=== PATIENT | male | born 1980 ===

== ENCOUNTER 2021-01-06 13:42 | Outpatient (REF) | payer OTHER, SELFPAY ==
[2021-01-06 14:04] LABS: MANUAL DIFF FLAG NO
[2021-01-06 14:10] LABS: Basophils Absolute Auto 0.1 X10*3/uL (0.0-0.2); Basophils Percent Auto 0.8 % (0-2); Eosinophils Absolute Auto 0.1 X10*3/uL (0.0-0.4); Eosinophils Percent Auto 0.8 % (0-4); Hematocrit 44.9 % (42-52); Hemoglobin 15.6 g/dl (14.0-18.0); Imm Gran Abs Auto 0.03 X10*3/uL (0.00-0.03); Imm Gran Pct Auto 0.4 % (0.0-0.4); Lymphocytes Absolute Auto 1.5 X10*3/uL (1.2-4.9); Lymphocytes Percent Auto 19.6 % (20-40); Mean Corpuscular HGB Conc 34.7 g/dl (31.0-36.0); Mean Corpuscular Hemoglobin 30.2 pg (27.0-33.0); Mean Corpuscular Volume 86.8 fL (80-98); Mean Platelet Volume 9.4 fL (9.4-12.4); Monocytes Absolute Auto 0.4 X10*3/uL (0.1-1.2); Neutrophils Absolute Auto 5.8 X10*3/uL (2.0-8.3); Neutrophils Percent Auto 73.4 % (45-73); Platelet Count 313 X10*3/uL (160-400); Red Blood Count 5.17 X10*6/uL (4.60-5.80); White Blood Count 7.9 X10*3/uL (4.8-10.8)
[2021-01-06 14:41] LABS: Alanine Aminotransferase 25 U/L (0-40); Albumin Level 4.8 g/dL (3.5-5.0); Alkaline Phosphatase 49 U/L (39-117); Anion Gap 10 (12-20); Aspartate Amino Transferase 19 U/L (5-37); Bilirubin Total 0.6 mg/dL (0.0-1.0); Blood Urea Nitrogen 15 mg/dL (9-16); C Reactive Protein 0.07 mg/dL (< or = 0.50); Calcium 10.1 mg/dL (8.4-10.2); Carbon Dioxide 28 mmol/L (22-29); Chloride 106 mmol/L (96-108); Estimated Glomerular Filt Rate > 60; Glucose Random 118 mg/dL (60-115); Potassium 4.2 mmol/L (3.3-5.1); Sodium 140 mmol/L (135-145); Total Protein 7.5 g/dL (6.5-8.0)
[2021-01-06 14:49] LABS: Erythrocyte Sedimentation Rate 2 MM/HR (0-15)
[2021-01-06 15:04] LABS: Free T4 (Free Thyroxine) 1.03 ng/dL (0.71-1.85); Thyroid Stimulating Hormone 0.25 uIU/mL (0.32-4.0)
[2021-01-06 15:19] LABS: Folate > 20.0 ng/mL (> or = 4.0); Vitamin B12 441 pg/mL (200-900)
[2021-01-06 17:59] LABS: Glucose Urine UA NEG (NEG); Leukocyte Esterase Urine NEG (NEG); Nitrite Urine NEG (NEG); PH 7.5 (5.0-8.0); Specific Gravity - Urine 1.015 (1.005-1.025); Urine Blood NEG (NEG); Urine Ketones NEG (NEG); Urine Protein NEG (NEG-TRACE)
[2021-01-06 18:07] LABS: Appearance Urine HAZY; Color Urine YELLOW
[2021-01-06 18:27] LABS: Amorphous Sediment Urine 3+ /LPF; RBC Urine 0 /HPF (0); WBC Urine 0 /HPF (0-4)
== END 2021-01-06 13:43 | disposition home or self-care (01) ==
LOC: HO.LAB 13:42
PROVIDERS: PCP Internal Medicine; Visit Provider Internal Medicine
DX: M79.10 Myalgia, unspecified site (principal)
CPT/HCPCS: 36415; 80053; 81001; 82550; 82607; 82746; 84439; 84443; 85025; 85652; 86140

== ENCOUNTER 2021-01-14 13:47 | Outpatient (REF) | payer OTHER, SELFPAY ==
[2021-01-14 14:46] LABS: Estimated Average Glucose 100 mg/dL; Hemoglobin A1c % 5.1 %
[2021-01-14 15:20] LABS: Free T4 (Free Thyroxine) 1.11 ng/dL (0.71-1.85); Thyroid Stimulating Hormone 0.49 uIU/mL (0.32-4.0)
== END 2021-01-14 13:48 | disposition home or self-care (01) ==
LOC: HO.LAB 13:47
PROVIDERS: PCP Internal Medicine; Visit Provider Internal Medicine
DX: R79.89 Other specified abnormal findings of blood chemistry (principal)
CPT/HCPCS: 36415; 83036; 84439; 84443

== ENCOUNTER 2021-02-11 14:11 | Outpatient (REF) | payer OTHER, SELFPAY ==
[2021-02-11 15:47] LABS: MANUAL DIFF FLAG NO
[2021-02-11 16:00] LABS: Basophils Absolute Auto 0.1 X10*3/uL (0.0-0.2); Basophils Percent Auto 0.7 % (0-2); Eosinophils Absolute Auto 0.1 X10*3/uL (0.0-0.4); Eosinophils Percent Auto 0.9 % (0-4); Hematocrit 48.5 % (42-52); Hemoglobin 16.5 g/dl (14.0-18.0); Imm Gran Abs Auto 0.07 X10*3/uL (0.00-0.03); Imm Gran Pct Auto 0.7 % (0.0-0.4); Lymphocytes Absolute Auto 2.1 X10*3/uL (1.2-4.9); Lymphocytes Percent Auto 21.9 % (20-40); Mean Corpuscular Hemoglobin 29.9 pg (27.0-33.0); Mean Platelet Volume 9.6 fL (9.4-12.4); Monocytes Absolute Auto 0.6 X10*3/uL (0.1-1.2); Monocytes Percent Auto 6.2 % (2-11); Neutrophils Absolute Auto 6.7 X10*3/uL (2.0-8.3); Neutrophils Percent Auto 69.6 % (45-73); Platelet Count 350 X10*3/uL (160-400); Red Blood Count 5.51 X10*6/uL (4.60-5.80); Red Cell Distribution Width 12.1 % (11.0-16.0); White Blood Count 9.6 X10*3/uL (4.8-10.8)
[2021-02-11 16:24] LABS: Alanine Aminotransferase 23 U/L (0-40); Albumin Level 4.9 g/dL (3.5-5.0); Alkaline Phosphatase 58 U/L (39-117); Anion Gap 15 (12-20); Aspartate Amino Transferase 18 U/L (5-37); Bilirubin Total 0.5 mg/dL (0.0-1.0); Blood Urea Nitrogen 16 mg/dL (9-16); C Reactive Protein 0.06 mg/dL (< or = 0.50); Calcium 10.4 mg/dL (8.4-10.2); Carbon Dioxide 26 mmol/L (22-29); Chloride 103 mmol/L (96-108); Estimated Glomerular Filt Rate > 60; Glucose Random 94 mg/dL (60-115); Potassium 4.7 mmol/L (3.3-5.1); Sodium 139 mmol/L (135-145); Total Protein 8.2 g/dL (6.5-8.0)
[2021-02-11 17:48] LABS: Erythrocyte Sedimentation Rate 2 MM/HR (0-15)
[2021-02-12 10:55] LABS: Antibody to SS-A Antigen <1.0 NEG AI (<1.0 NEG); Antibody to SS-B Antigen <1.0 NEG AI (<1.0 NEG)
[2021-02-14 17:57] LABS: Anti Nuclear Antibody Screen NEGATIVE (NEGATIVE)
[2021-02-17 01:35] LABS: Aldolase 5.9 U/L (<=8.1)
== END 2021-02-11 14:12 | disposition home or self-care (01) ==
LOC: HO.LAB 14:11
PROVIDERS: Visit Provider Student in an Organized Health Care Education/Training Program
DX: M79.10 Myalgia, unspecified site (principal); Z79.899 Other long term (current) drug therapy; Z87.891 Personal history of nicotine dependence
CPT/HCPCS: 36415; 80053; 82085; 82550; 85025; 85652; 86038; 86039; 86140; 86235

== ENCOUNTER → 2021-03-08 15:25 | Outpatient (BNVA) | payer OTHER, SELFPAY | PROVIDERS: PCP Internal Medicine; Visit Provider Student in an Organized Health Care Education/Training Program ==

== ENCOUNTER 2021-04-04 15:10 | Outpatient (REF) | payer OTHER, SELFPAY ==
[2021-04-04 16:12] LABS: Rheumatoid Factor < 15.0 IU/mL (<15.0)
[2021-04-04 16:35] LABS: Syphilis Screen Nonreactive (Nonreactive)
[2021-04-04 17:51] LABS: Erythrocyte Sedimentation Rate 4 MM/HR (0-15)
[2021-04-05 08:52] LABS: Lyme Abs Screen <0.90 index
[2021-04-05 13:41] LABS: IgA 200 mg/dL (47-310); IgG 1124 mg/dL (600-1640); IgM 77 mg/dL (50-300)
[2021-04-08 23:36] LABS: Aldolase 6.3 U/L (<=8.1)
== END 2021-04-04 15:11 | disposition home or self-care (01) ==
LOC: HO.LAB 15:10
PROVIDERS: PCP Internal Medicine; Visit Provider Psychiatry & Neurology Neurology
DX: R53.83 Other fatigue (principal); M79.602 Pain in left arm
CPT/HCPCS: 36415; 82085; 82550; 82784; 85652; 86334; 86431; 86617; 86618; 86780

== ENCOUNTER 2021-10-13 13:00 | Outpatient (RCR) | payer OTHER, SELFPAY ==
--- NOTE | 2021-09-15 13:57 | MHC.OT.OEV ---
[address] [phone] F: [phone] Occupational Therapy Evaluation Diagnosis: Post vaccine reaction. Weakness .. Date of Onset: 08/24/20 Date of Surgery: Attending Provider: Carlene Soriano Prescribed Treatment: Delgado and dian BULLOCK Follow Up Appointment: History of Current Condition: Pt reports persistant arm pain for 2 mo post Mederna vaccine.. worsening with arm weakness on left and progressing to right arm and his legs. He reports worsening sx with any light exercising with several days to recover. Reports taking Cyclobenzaprine. Pt has had EMG/NCV not available now.. Significant Medical History: Anxiety disorder Back pain Precautions/Contraindications: Pain Patient Goals: Getting better but I think it will only make me weaker. Hand Dominance: Right Observations: QuickDASH Score: 84 Prior Level of Function and Occupation Self Care, Employment, Leisure: Indep in all areas. 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 Walks with son, ride bikes Living Situation, Family and/or Social Support: Lives alone.. Has a 15 yo son and a girlfriend Current Level of Function and Occupation Self Care, Employment, Leisure: Okay with light clothes ,indep ADL Light food prep, light home making Sleep: Interrupted due to worsening anxiety Driving: Limited due to ho anxiety. Avoids use of left arm Vision: Balance: Pain Assessment Pain Score: 6 Pain Scale Used: Numeric (0 - 10) Pain Location and Description: 6 bilateral upper arms at rest Aggravating Factors: Alleviating Factors: Skin and Soft Tissue Assessment Skin and Soft Tissue: Comments: Right shoulder protracted Left scap mild winging Left upper trapezius ms hypertrophy Nerve assessment Ulnar Nerve: Not Tested Median Nerve: Not Tested Radial Nerve: Not Tested Comments: Sensory Assessment Temperature: Not Tested Light Touch: Not Tested Proprioception: Not Tested Vibration: Not Tested Comments: Edema Assessment Upper Extremity: WNL Lower Extremity: Comments: Dexterity Assessment Dexterity: Not Tested Comments: Special Tests Comments: AROM(PROM) Strength Cervical Cervical Flexion: Cervical Extension: Cervical Lateral Flexion: Cervical Rotation: Comments: Shoulder Flexion: Extension: Abduction: Internal Rotation: External Rotation: Comments: WFL Flexion: Extension: Abduction: Internal Rotation: External Rotation: Comments: Elbow Flexion: Extension: Pronation: Supination: Comments: Flexion: Extension: Pronation: Supination: Comments: Wrist Flexion: Extension: Ulnar Deviation: Radial Deviation: Comments: Flexion: Extension: Ulnar Deviation: Radial Deviation: Comments: Thumb Thumb CMC Flexion: Thumb MCP Flexion: Thumb IP Flexion: Radial Abduction: Palmar Abduction: [place] (K[place]andji 0-10): Comments: Digits Index MCP: PIP: DIP: Long MCP: PIP: DIP: Ring MCP: PIP: DIP: Small MCP: PIP: DIP: Comments: Gross Grasp: R 40 lb L 20 lb Lateral Pinch: Two-Point Pinch: Three-Jaw Derek: Comments: Patient Education Primary Language: Slovenian Kiosk Sales Representative Required: No Current Knowledge: Minimal, needs reinforcement Teaching Method: Education Needs Identified on Evaluation: ADL's Exercise Pain How did patient/family demonstrate learning? Patient demonstrates Patient verbalizes Needs reinforcement Barriers to Learning: Other Readiness for Learning: Denying Who was educated? Patient Comments: Pt states he doesn't believe therapy or exercise will help based on his experience with worsening sx after taking a short walk with his son and with attempting light exercise in his home. Plan of Care Assessment: Pt is a 40 yo male who presents with complaint of chronic bilateral UE and LE pain and weakness since getting his second dose of covid vaccine the previous August. Today he presents with left upper trapezius ms hypertrophy and middle and lower trap weakness with mild left scapula winging noted. MMT was WFL with mild LUE ms atrophy noted. 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 He reports wearing his back brace and low compression sleeves help. He reports worsening of his anxiety disorder and expresses having no expectation for improvement in his pain and weakness based on his attempts to rehab at home He is agreeable to trial OT 1x wk as he is able due to loss of insurance as he was dismissed from his job two days ago STG Duration: 3 wks Short Term Goals: Demo compliance with graded HEP Tolerate body wt core ther ex Tolerate isometric UE ther ex Tolerate up to 10 min on the UBE with low resistance Complete Block and Box test box in under 2 min LTG Duration: 6 wks Care Home Goals: Indep with HEP UBE x 20 min Right structural engineering drafting officer to 50 lb Left structural engineering drafting officer to 45 lb Lift and carry 10 lb bag Quick DASH to < 30 pts with modifications as needed Frequency and Duration: The patient will be seen 2x wk x 6 wks Treatment Plan: Therapeutic Exercise Therapeutic Activity Home Exercise Program Patient Education ADL Training Soft Tissue Mobilization Kinesiotaping Diaphragmatic breathing ex for relaxation prior to ex and ther activities Electronically Signed By: Marilu Styles OT CHT CLT Reviewed/agree with student documentation: N/A Therapist: Please sign and return to therapist, Thank you for your referral.
--- NOTE | 2021-10-13 13:59 | MHC.OT.DC ---
[address] [phone] F: [phone] Occupational Therapy Discharge Note Provider: Carlene Soriano Diagnosis: Post vaccine reaction. Weakness .. Date of Surgery: Date of Evaluation: 09/15/21 Date of Discharge: 10/13/21 Treatments to Date: 6 Cancellations to Date: No Shows to Date: Discharge Status: Independent with HEP Patient Elected to Stop Discharge Summary: Pt reports dec pain with TENS, increased tolerance with light activity here in the clinic. He continues to report con't pain with light daily activities with the LUE > RUE. Today he reports increase left biceps pain and upper trap pain after short shuffling of playing cards. Pain and pt anxiety about pain limiting all activity In OT he has aquired a variety of tools for pain management , strengthening and activity tolerance. He has purchased a TENS unit for home use. Reports loss of insurance and confidence with following his home self pace program Goals not met for dexterity ,strength or function Participation limited by pt anxiety over increasing pain with inc activity Electronically Signed By: Marilu Styles OT CHT CLT Reviewed/agree with student documentation: N/A Therapist: Please Sign and return to therapist, thank you for your referral.
== END 2021-10-13 14:00 | disposition home or self-care (01) ==
LOC: HO.OT 13:00
PROVIDERS: PCP Internal Medicine; Visit Provider Internal Medicine
DX: R29.898 Other symptoms and signs involving the musculoskeletal system (principal)
CPT/HCPCS: 97014; 97110; 97140; 97167; 97530

== ENCOUNTER 2021-12-30 14:48 | Outpatient (REF) | payer OTHER, SELFPAY ==
[2021-12-30 15:00] LABS: MANUAL DIFF FLAG NO
[2021-12-30 15:32] LABS: Basophils Absolute Auto 0.1 X10*3/uL (0.0-0.2); Eosinophils Absolute Auto 0.2 X10*3/uL (0.0-0.4); Eosinophils Percent Auto 2.4 % (0-4); Hematocrit 47.8 % (42.0-52.0); Hemoglobin 16.1 g/dl (14.0-18.0); Imm Gran Abs Auto 0.03 X10*3/uL (0.00-0.03); Imm Gran Pct Auto 0.4 % (0.0-0.4); Lymphocytes Absolute Auto 1.8 X10*3/uL (1.2-4.9); Mean Corpuscular HGB Conc 33.7 g/dl (31.0-36.0); Mean Corpuscular Hemoglobin 28.9 pg (27.0-33.0); Mean Corpuscular Volume 85.7 fL (80.0-98.0); Mean Platelet Volume 9.3 fL (9.4-12.4); Monocytes Absolute Auto 0.3 X10*3/uL (0.1-1.2); Monocytes Percent Auto 4.7 % (2-11); Neutrophils Absolute Auto 4.5 x10*3/uL (2.0-8.3); Neutrophils Percent Auto 65.5 % (45-73); Platelet Count 334 X10*3/uL (160-400); Red Blood Count 5.58 X10*6/uL (4.60-5.80); Red Cell Distribution Width 12.1 % (11.0-16.0)
[2021-12-30 15:57] LABS: Alanine Aminotransferase 35 U/L (0-40); Albumin Level 4.7 g/dL (3.5-5.0); Alkaline Phosphatase 57 U/L (39-117); Anion Gap 12 (12-20); Aspartate Amino Transferase 19 U/L (5-37); Bilirubin Total 0.7 mg/dL (0.0-1.0); Blood Urea Nitrogen 15 mg/dL (9-16); C Reactive Protein 0.18 mg/dL (< or = 0.50); Carbon Dioxide 25 mmol/L (22-29); Chloride 107 mmol/L (96-108); Cholesterol 232 mg/dL; Estimated Glomerular Filt Rate > 60; Glucose Random 118 mg/dL (60-115); HDL Cholesterol 42 mg/dL; LDL Cholesterol Calculated 160 mg/dl; Potassium 4.9 mmol/L (3.3-5.1); Sodium 139 mmol/L (135-145); Total Protein 7.7 g/dL (6.5-8.0); Triglycerides 151 mg/dL
[2021-12-30 16:15] LABS: Erythrocyte Sedimentation Rate 3 MM/HR (0-15)
[2021-12-30 16:18] LABS: Free T4 (Free Thyroxine) 1.02 ng/dL (0.71-1.85); Thyroid Stimulating Hormone 0.82 uIU/mL (0.32-4.0)
[2021-12-30 16:30] LABS: Vitamin B12 534 pg/mL (200-900)
== END 2021-12-30 14:49 | disposition home or self-care (01) ==
LOC: HO.LAB 14:48
PROVIDERS: PCP Internal Medicine; Visit Provider Internal Medicine
DX: T88.1XXA Other complications following immunization, not elsewhere classified, initial encounter (principal); E78.00 Pure hypercholesterolemia, unspecified
CPT/HCPCS: 36415; 80053; 80061; 82607; 82746; 84439; 84443; 85025; 85652; 86140

== ENCOUNTER 2022-07-31 15:29 | Outpatient (REF) | payer OTHER, SELFPAY ==
[2022-07-31 15:58] LABS: MANUAL DIFF FLAG NO
[2022-07-31 17:18] LABS: Basophils Percent Auto 0.6 % (0-2); Eosinophils Absolute Auto 0.2 X10*3/uL (0.0-0.4); Eosinophils Percent Auto 2.3 % (0-4); Hematocrit 48.1 % (42.0-52.0); Hemoglobin 16.3 g/dl (14.0-18.0); Imm Gran Abs Auto 0.04 X10*3/uL (0.00-0.03); Imm Gran Pct Auto 0.6 % (0.0-0.4); Lymphocytes Absolute Auto 2.3 X10*3/uL (1.2-4.9); Lymphocytes Percent Auto 35.1 % (20-40); Mean Corpuscular HGB Conc 33.9 g/dl (31.0-36.0); Mean Corpuscular Hemoglobin 29.8 pg (27.0-33.0); Mean Corpuscular Volume 87.9 fL (80.0-98.0); Mean Platelet Volume 9.5 fL (9.4-12.4); Monocytes Absolute Auto 0.4 X10*3/uL (0.1-1.2); Monocytes Percent Auto 6.2 % (2-11); Neutrophils Absolute Auto 3.6 x10*3/uL (2.0-8.3); Neutrophils Percent Auto 55.2 % (45-73); Platelet Count 298 X10*3/uL (160-400); Red Blood Count 5.47 X10*6/uL (4.60-5.80); Red Cell Distribution Width 12.2 % (11.0-16.0); White Blood Count 6.5 X10*3/uL (4.8-10.8)
[2022-07-31 17:21] LABS: Appearance Urine Clear; Color Urine Yellow; Glucose Urine UA Negative (Negative); Leukocyte Esterase Urine Negative (Negative); Nitrite Urine Negative (Negative); Specific Gravity - Urine 1.025 (1.005-1.025); Urine Blood Negative (Negative); Urine Ketones Negative (Negative); Urine Protein Negative (Neg-Trace)
[2022-07-31 17:24] LABS: Bacteria Urine None Seen (None Seen); Hyaline Casts Urine 0-2 /LPF (0-2); RBC Urine 0-2 /HPF (0-2); Squamous Epithelial Cell Urine 0-2 /HPF (0-2); WBC Urine 0-5 /HPF (0-5)
[2022-07-31 17:26] LABS: Estimated Average Glucose 108 mg/dL; Hemoglobin A1C 148.8319 umol/L; Hemoglobin A1c % 5.4 %
[2022-07-31 17:47] LABS: Alanine Aminotransferase 84 U/L (0-40); Albumin Level 4.6 g/dL (3.5-5.0); Alkaline Phosphatase 55 U/L (39-117); Anion Gap 13 (12-20); Aspartate Amino Transferase 39 U/L (5-37); Bilirubin Total 0.6 mg/dL (0.0-1.0); Blood Urea Nitrogen 17 mg/dL (9-16); Calcium 9.9 mg/dL (8.4-10.2); Carbon Dioxide 26 mmol/L (22-29); Chloride 107 mmol/L (96-108); Cholesterol 239 mg/dL; Estimated Glomerular Filt Rate > 60; Glucose Random 84 mg/dL (60-115); HDL Cholesterol 44 mg/dL; LDL Cholesterol Calculated 160 mg/dl; Potassium 4.5 mmol/L (3.3-5.1); Sodium 141 mmol/L (135-145); Total Protein 7.4 g/dL (6.5-8.0); Triglycerides 175 mg/dL
[2022-07-31 18:06] LABS: Thyroid Stimulating Hormone 0.62 uIU/mL (0.32-4.0)
== END 2022-07-31 15:30 | disposition home or self-care (01) ==
LOC: HO.LAB 15:29
PROVIDERS: PCP Internal Medicine; Visit Provider Internal Medicine
DX: R35.0 Frequency of micturition (principal); R73.02 Impaired glucose tolerance (oral); E78.00 Pure hypercholesterolemia, unspecified
CPT/HCPCS: 36415; 80053; 80061; 81001; 83036; 84443; 85025

== ENCOUNTER 2022-08-21 14:12 | Outpatient (REF) | payer OTHER, SELFPAY ==
[2022-08-21 16:28] LABS: Alanine Aminotransferase 42 U/L (0-40); Albumin Level 4.4 g/dL (3.5-5.0); Alkaline Phosphatase 63 U/L (39-117); Anion Gap 14 (12-20); Aspartate Amino Transferase 22 U/L (5-37); Bilirubin Total 0.6 mg/dL (0.0-1.0); Blood Urea Nitrogen 15 mg/dL (9-16); Calcium 9.5 mg/dL (8.4-10.2); Carbon Dioxide 24 mmol/L (22-29); Chloride 107 mmol/L (96-108); Estimated Glomerular Filt Rate > 60; Glucose Random 85 mg/dL (60-115); Potassium 4.5 mmol/L (3.3-5.1); Sodium 140 mmol/L (135-145); Total Protein 7.2 g/dL (6.5-8.0)
[2022-08-23 05:22] LABS: HBS Num1 2.36 mIU/mL (0-7.99); HBc Num1 0.07 S/CO (0.00-0.79); HBsAGNum1 0.36 S/CO (0.00-0.99); Hepatitis B Core Antibody Nonreactive (Nonreactive); Hepatitis B Surface Antigen Negative (Negative); ~HepC Num1 0.09 S/CO (0.00-0.79); ~Hepatitis B Surface Antibody NONREACTIVE (Nonreactive); ~Hepatitis C Antibody Nonreactive (Nonreactive)
== END 2022-08-21 14:13 | disposition home or self-care (01) ==
LOC: HO.LAB 14:12
PROVIDERS: PCP Internal Medicine; Visit Provider Internal Medicine
DX: R79.89 Other specified abnormal findings of blood chemistry (principal)
CPT/HCPCS: 36415; 80053; 86704; 86706; 86803; 87340

== ENCOUNTER 2022-09-15 14:02 | Outpatient (REF) | payer OTHER, SELFPAY ==
--- NOTE | ~2022-09-15 | US_ITS ---
EXAMINATION: US ABDOMEN LIMITED CLINICAL INFORMATION: Other specified abnormal findings of blood chemistry. Abnormal liver function test. COMPARISON: None TECHNIQUE: Real-time imaging of the right upper quadrant abdominal viscera. FINDINGS: PANCREAS: Normal. LIVER: The liver is normal in size. The liver contour is normal. Parenchymal echogenicity is normal. No focal hepatic lesion. There is no intrahepatic biliary duct dilatation seen. GALLBLADDER: The gallbladder is physiologically distended without evidence of stones, sludge, polyps, wall thickening or pericholecystic fluid. COMMON BILE DUCT: Normal in caliber measuring 0.3 cm in diameter. RIGHT KIDNEY: No hydronephrosis. No renal calculi or focal parenchymal lesions. The kidney measures 11.6 cm in maximum dimension. FREE FLUID: None. US/US abdomen limited IMPRESSION: Negative exam.
== END 2022-09-15 14:03 | disposition home or self-care (01) ==
LOC: HO.US 14:02
PROVIDERS: Visit Provider Internal Medicine
DX: R79.89 Other specified abnormal findings of blood chemistry (principal)
CPT/HCPCS: 76705

== ENCOUNTER 2023-05-04 14:39 | Outpatient (AMB) | payer OTHER, SELFPAY ==
[2023-05-04 14:44] VITALS: BP 134/90; PULSE 105; O2SAT 95; BMI 29.4
--- NOTE | 2023-05-04 14:44 | A.OFFPC_ITS ---
Vital Signs 05/04/23 14:44 05/04/23 15:08 Height 5 ft 9 in Weight 199 lb BMI 29.4 BP 134/90 H 132/80 Blood Pressure Location Lt brachial Rt brachial Position Sitting Sitting Pulse 105 H Pulse Source Pulse Oximeter Pulse Oximetry (%) 95 Oxygen Delivery Method Room Air Intake Visit Reasons: vacc. reaction/ anxiety disorder Allergies No Known Allergies [No Known Allergies*] Allergy (Verified 05/04/23 14:45) Medication List - Last Reconciled 05/04/23 by Carlene Soriano MD cyclobenzaprine 5 mg PO TID PRN 30 days [Functional Capacity Evaluation As directed] naproxen sodium (Aleve) 220 mg PO BID PRN sertraline 25 mg PO DAILY 30 days Tobacco use date assessed: 11/06/22 Dental Screening Dental Screen Date: 05/04/23 Did you have a dental visit in the last 12 months?: Yes Did you have a dental problem in the last 6 months where you did not have access to dental care?: No Was dental information given to patient?: Patient has dentist HPI vacc. reaction/ anxiety disorder HPI Details 42-year-old overweight male with a histo ry of post vaccination reaction with arm weakness generalized anxiety disorder, hypercholesterolemia and impaired glucose tolerance last seen in July and had blood work done review of the results came back with an elevated liver function test workup was requested hepatitis B negative and ultrasound revealed negative results patient is here for follow-up. Patient last seen in October 2022. noted weight gain [facility] Medical History Shoulder weakness Elevated blood sugar Surgical History No pertinent past surgical history Family History Father Diabetes Hypertension Mother Diabetes Hypertension Social History Housing: Apartment Alcohol intake: current Alcohol intake frequency: holidays/special occasions only Patient Tobacco Use Status: Never used Tobacco e-Cigarette/Vaping Use: Never Used Second Hand Smoke Exposure: No service: No Current occupational status: employed Current occupational exposures/hazards: No Cognitive needs: No Hearing needs: No Vision needs: No Questionnaire PHQ-9 Over the last 2 weeks, how often have you been bothered by any of the following problems? 1. Little interest or pleasure in doing things: several days 2. Feeling down, depressed, or hopeless: several days 3. Trouble falling or staying asleep, or sleeping too much: not at all 4. Feeling tired or having little energy: not at all 5. Poor appetite or overeating: not at all 6. Feeling bad about yourself - or that you are a failure or have let yourself or your family down: not at all 7. Trouble concentrating on things, such as reading the newspaper or watching television: not at all 8. Moving or speaking so slowly that other people could have noticed. Or the opposite - being so fidgety or restless that you have been moving around a lot more than usual: not at all 9. Thoughts that you would be better off or of hurting yourself in some way: not at all Total score: 2 Depression Screening Interpretation: Positive Depression Screening Done: Yes Source: Developed by Drs. Steve Hernandez, Skinny Barkley and colleagues, with an educational jamey from [employer]. Thrive Questionnaire Date Thrive assessed: 08/01/22 AUDIT C Alcohol Use Questionnaire (AUDIT-C) 1. How often do you have a drink containing alcohol?: Monthly or less 2. How many drinks containing alcohol do you have on a typical day when you are drinking?: 1 or 2 3. How often do you have six or more drinks on one occasion?: Never Total Score: 1 [place]-7 AMB Questionnaire VIRGINIA-7 Date VIRGIN[place] - 7 assessed: 08/01/22 Source: Developed by Drs. Steve Hernandez, Gabriella Drake, Skinny Hollingsworth and colleagues, with an educational jamey from [employer]. Physical exam (Primary Care) Vital Signs: Last Vital Signs Pulse 105 H 05/04/23 14:44 BP 132/80 05/04/23 15:08 Pulse Ox 95 05/04/23 14:44 Oxygen Delivery Method Room Air 05/04/23 14:44 BMI result Body Mass Index 29.4 Tobacco/Smoking Status: Tobacco use Status Tobacco use date assessed 11/06/22 05/04/23 14:45 Patient Tobacco Use Status Never used Tobacco 05/04/23 14:45 Tobacco use type 02/02/22 16:23 e-Cigarette/Vaping Use Never Used 05/04/23 14:45 PHQ-9: PHQ-9 Score PHQ-9: Total score 2 05/04/23 15:20 Depression Screening Interpretation: Positive Thrive Assessment: Date of Thrive Assessment Date Thrive assessed 08/01/22 05/04/23 14:45 Office Procedures Flu Questionnaire Does the patient have a severe egg allergy?: No Does the patient have severe life threatening allergies?: No Does the patient have a fever or illness today?: No Has the patient ever had Guillain-Pho[place] Syndrome?: No Has the patient ever had any past reaction to a flu shot?: No Immunizations flu vacc [id number] 6mos up(PF) 60 mcg(15 mcgx4)/0.5 mL IM syringe Performing Provider: Carlene Soriano MD [facility] Administered by: NAHUM Black on 05/04/23 15:24 Dose Route Admin Location Dispensed Lot Number Expiration Date NDC Sharepoint Specialist 0.5 mL IM Right Deltoid 0.5 mL [id number] 01/20/24 [id number] [employer] VIS Given Date VIS Provided VIS Publication Date 05/04/23 Single Vaccine 21 Eligibility Eligibility Date Funding Source Not [facility] Eligible 05/04/23 Private Assessment and Plan Assessment & Plan (1) Hypercholesterolemia: Code(s): E78.00 - Pure hypercholesterolemia, unspecified (2) Overweight (BMI 25.0-29.9): Code(s): E66.3 - Overweight (3) Post-vaccination reaction: Comment: August 2020 Code(s): T88.1XXA - Other complications following immunization, not elsewhere classified, initial encounter (4) Generalized anxiety disorder: Comment: Declined referral for counseling October 2021, 01/2022 Code(s): F41.1 - Generalized anxiety disorder Orders: Orders Complete Blood Count Auto Diff Today E78.00 - Pure hypercholesterolemia, unspecified Thyroid Stimulating Hormone Today E78.00 - Pure hypercholesterolemia, unspecified Hemoglobin A1c Today R73.02 - Impaired glucose tolerance (oral) Influenza [id number] Immunization Today Z23 - Encounter for immunization Comprehensive Met. Panel Today E78.00 - Pure hypercholesterolemia, unspecified Free T4 (Free Thyroxine) Today E78.00 - Pure hypercholesterolemia, unspecified Lipid Panel Today E78.00 - Pure hypercholesterolemia, unspecified Medications: Refilled naproxen sodium (Aleve) alternating day with tylenol 220 mg PO BID PRN 90 caps 0RF pain M25.511 - Pain in right shoulder, M25.512 - Pain in left shoulder Coding Level of Care Code Est Pt Level 4 (34652) Diagnoses Hypercholesterolemia E78.00 Overweight (BMI 25.0-29.9) E66.3 Post-vaccination reaction T88.1XXA Generalized anxiety disorder F41.1
[2023-05-04 15:08] VITALS: BP 132/80
== END 2023-05-04 15:25 | disposition home or self-care (01) ==
PROVIDERS: PCP Internal Medicine; Visit Provider Internal Medicine
DX: E78.00 Pure hypercholesterolemia, unspecified (principal); E66.3 Overweight; T88.1XXA Other complications following immunization, not elsewhere classified, initial encounter; F41.1 Generalized anxiety disorder; Z23 Encounter for immunization
CPT/HCPCS: 90471; 90686; 99214

== ENCOUNTER 2023-08-20 10:29 | Outpatient (REF) | payer OTHER, SELFPAY ==
[2023-08-20 10:44] LABS: MANUAL DIFF FLAG NO
[2023-08-20 11:37] LABS: Basophils Absolute Auto 0.1 X10*3/uL (0.0-0.2); Basophils Percent Auto 0.8 % (0-2); Eosinophils Absolute Auto 0.1 X10*3/uL (0.0-0.4); Eosinophils Percent Auto 1.9 % (0-4); Hematocrit 49.3 % (42.0-52.0); Hemoglobin 16.5 g/dl (14.0-18.0); Imm Gran Abs Auto 0.07 X10*3/uL (0.00-0.03); Lymphocytes Absolute Auto 2.2 X10*3/uL (1.2-4.9); Lymphocytes Percent Auto 30.1 % (20-40); Mean Corpuscular HGB Conc 33.5 g/dl (31.0-36.0); Mean Corpuscular Volume 86.6 fL (80.0-98.0); Mean Platelet Volume 9.8 fL (9.4-12.4); Monocytes Absolute Auto 0.4 X10*3/uL (0.1-1.2); Monocytes Percent Auto 5.7 % (2-11); Neutrophils Absolute Auto 4.4 x10*3/uL (2.0-8.3); Neutrophils Percent Auto 60.5 % (45-73); Platelet Count 337 X10*3/uL (160-400); Red Blood Count 5.69 X10*6/uL (4.60-5.80); Red Cell Distribution Width 12.2 % (11.0-16.0); White Blood Count 7.3 X10*3/uL (4.8-10.8)
[2023-08-20 11:51] LABS: Estimated Average Glucose 103 mg/dL; Hemoglobin A1c % 5.2 % (<6.0)
[2023-08-20 12:33] LABS: Alanine Aminotransferase 26 U/L (0-40); Albumin Level 4.4 g/dL (3.5-5.0); Alkaline Phosphatase 66 U/L (39-117); Anion Gap 10 (12-20); Aspartate Amino Transferase 16 U/L (5-37); Bilirubin Total 0.5 mg/dL (0.0-1.0); Blood Urea Nitrogen 16 mg/dL (9-16); Calcium 9.6 mg/dL (8.4-10.2); Carbon Dioxide 24 mmol/L (22-29); Chloride 110 mmol/L (96-108); Cholesterol 178 mg/dL (<200); Estimated Glomerular Filt Rate > 60; Glucose Random 98 mg/dL (60-115); HDL Cholesterol 40 mg/dL (>40); LDL Cholesterol Calculated 113 mg/dL (<100); Potassium 4.4 mmol/L (3.3-5.1); Sodium 140 mmol/L (135-145); Total Protein 7.6 g/dL (6.5-8.0); Triglycerides 129 mg/dL (<150)
[2023-08-20 13:23] LABS: Free T4 (Free Thyroxine) 0.87 ng/dL (0.71-1.85); Thyroid Stimulating Hormone 0.96 uIU/mL (0.32-4.0)
== END 2023-08-20 10:30 | disposition home or self-care (01) ==
LOC: HO.LAB 10:29
PROVIDERS: PCP Internal Medicine; Visit Provider Internal Medicine
DX: R73.02 Impaired glucose tolerance (oral) (principal); E78.00 Pure hypercholesterolemia, unspecified
CPT/HCPCS: 36415; 80053; 80061; 83036; 84439; 84443; 85025

== ENCOUNTER 2023-08-21 12:26 | Outpatient (AMB) | payer OTHER, SELFPAY ==
[2023-08-21 12:28] VITALS: BP 114/82; PULSE 79; O2SAT 98; BMI 29.9
--- NOTE | 2023-08-21 12:28 | MHC.PC.OV ---
Vital Signs 08/21/23 12:28 Height 5 ft 9 in Weight 202 lb 6 oz BMI 29.9 BP 114/82 Blood Pressure Location Rt brachial Position Sitting Pulse 79 Pulse Source Pulse Oximeter Pulse Oximetry (%) 98 Oxygen Delivery Method Room Air Intake Visit Reasons: PE Intake Note: Patient is here today for a physical. Library Services Coordinator Required: No Allergies No Known Allergies [No Known Allergies*] Allergy (Verified 08/21/23 12:32) Medication List - Last Reconciled 08/21/23 by Carlene Soriano MD cyclobenzaprine 5 mg PO TID PRN 30 days [Functional Capacity Evaluation As directed] naproxen sodium (Aleve) 220 mg PO BID PRN sertraline 25 mg PO DAILY 30 days Tobacco use date assessed: 08/21/23 Dental Screening Dental Screen Date: 08/21/23 Did you have a dental visit in the last 12 months?: Yes Did you have a dental problem in the last 6 months where you did not have access to dental care?: No Was dental information given to patient?: Patient has dentist HPI PE HPI Details 42-year-old overweight male with a history of hypercholesterolemia generalized anxiety disorder and a post vaccination reaction of muscle aches coming in for physical exam patient was last seen in April 2023. [facility] Medical History Shoulder weakness Elevated blood sugar Surgical History No pertinent past surgical history Family History (Updated 08/21/23 @ 12:40 by Carlene Soriano MD) Father Diabetes Hypertension Prostate cancer Mother Diabetes Hypertension Breast cancer in situ Social History (Updated 08/21/23 @ 12:42 by Carlene Soriano MD) Housing: Apartment Alcohol intake: never Comment: 30 years old Patient Tobacco Use Status: Never used Tobacco e-Cigarette/Vaping Use: Never Used Second Hand Smoke Exposure: No service: No Current occupational status: employed Current occupational exposures/hazards: No Cognitive needs: No Hearing needs: No Vision needs: No Questionnaire PHQ-9 Over the last 2 weeks, how often have you been bothered by any of the following problems? 1. Little interest or pleasure in doing things: not at all 2. Feeling down, depressed, or hopeless: several days 3. Trouble falling or staying asleep, or sleeping too much: not at all 4. Feeling tired or having little energy: not at all 5. Poor appetite or overeating: not at all 6. Feeling bad about yourself - or that you are a failure or have let yourself or your family down: not at all 7. Trouble concentrating on things, such as reading the newspaper or watching television: not at all 8. Moving or speaking so slowly that other people could have noticed. Or the opposite - being so fidgety or restless that you have been moving around a lot more than usual: not at all 9. Thoughts that you would be better off or of hurting yourself in some way: not at all Total score: 1 Depression Screening Interpretation: Positive Depression Screening Follow-up: Existing condition and In treatment Depression Screening Done: Yes Source: Developed by Drs. Steve Hernandez, Gabriella Drake, Skinny Hollingsworth and colleagues, with an educational jamey from [employer]. Thrive Questionnaire Date Thrive assessed: 08/21/23 AUDIT C Alcohol Use Questionnaire (AUDIT-C) 1. How often do you have a drink containing alcohol?: Monthly or less 2. How many drinks containing alcohol do you have on a typical day when you are drinking?: 1 or 2 3. How often do you have six or more drinks on one occasion?: Never Total Score: 1 VIRGINIA-7 AMB Questionnaire VIRGINIA-7 Date [place]IR[place] - 7 assessed: 08/21/23 Feeling nervous, anxious, or on edge: 0 = Not at all Not being able to stop or control worryin = Not at all Worrying too much about different things: 0 = Not at all Trouble relaxin = Not at all Being so restless that it is hard to sit still: 0 = Not at all Becoming easily annoyed or irritable: 0 = Not at all Feeling afraid as if something awful might happen: 0 = Not at all Total [place]-7 score (0-4 normal; 5-9 mild; 10-14 moderate; 15-21 severe): 0 Source: Developed by Drs. Steve Hernandez, Gabriella Drake, Skinny Hollingsworth and colleagues, with an educational jamey from [employer]. Review of Systems Const Denies poor appetite and Denies weakness Eyes Denies no additional complaints ENT Reports Normal hearing present, Denies dizziness, Denies nasal congestion, Denies tinnitus and Denies sore throat Card Denies chest pain, Denies syncope, Denies rapid heart rate and Denies dyspnea Resp Denies cough and Denies dyspnea GI Denies change in stool character, Reports constipation, Denies diarrhea, Denies nausea and Denies vomiting Denies dysuria and Denies urinary frequency Neuro Reports Normal hearing present, Denies confusion, Denies dizziness, Denies syncope and Denies weakness Psych Denies confusion Physical exam (Primary Care) Vital Signs: Oxygen Delivery Method Room Air 08/21/23 12:28 Tobacco/Smoking Status: Tobacco use Status Tobacco use date assessed 08/21/23 08/21/23 12:30 Patient Tobacco Use Status Never used Tobacco 08/21/23 12:30 Tobacco use type 02/02/22 16:23 e-Cigarette/Vaping Use Never Used 08/21/23 12:30 PHQ-9: PHQ-9 Score PHQ-9: Total score 0 08/21/23 12:30 Depression Screening Interpretation: Positive Depression Screening Follow-up: Existing condition and In treatment Thrive Assessment: Date of Thrive Assessment Date Thrive assessed 08/21/23 08/21/23 12:30 Const General: No confusion Orientation/consciousness: No confusion HENMT Head: Yes normocephalic Ears: external ears normal and TM's normal bilaterally Face and sinus: Yes normal facial exam Mouth: moist mucous membranes Throat: Yes tonsils normal Eyes Conjunctivae: conjunctivae normal Pupils: Equal, round and reactive pupils present and Pupil accommodation reflex normal Direct Ophthalmoscopy: normal light reflex Neck Neck: No lymphadenopathy Thyroid: Thyroid normal Chest Chest palpation & inspection: normal inspection of the chest Resp Effort & Inspection: normal respiratory effort and no audible wheezes Auscultation: clear to auscultation bilaterally, no crackles, no wheezes and lung sounds not diminished Cardio Rate: regular rate Rhythm: regular rhythm Peripheral pulses: radial pulses present and dorsalis pedis present GI Other: visual negative Palpation (GI): no masses Auscultation: normal bowel sounds and normoactive bowel sounds Rectal Exam - Male: Yes deferred Other: r groin mass Skin General skin exam: no rashes or lesions noted Rashes: no rashes Neuro General: No confusion Cranial nerves: Yes Equal, round and reactive pupils present and Yes Normal hearing present Cognition (Neuro): normal cognition Gait exam (Neuro): Normal gait present Motor exam (neuro): 5/5 motor strength present throughout Deep tendon reflexes (DTR's): Right brachioradialis reflex intensity grade: 2+, Left brachioradialis reflex intensity grade: 2+, Right patellar reflex intensity grade: 2+ and Left patellar reflex intensity grade: 2+ Extrem General: No edema Assessment and Plan Assessment & Plan (1) Annual physical exam: Code(s): Z00.00 - Encounter for general adult medical examination without abnormal findings (2) Overweight (BMI 25.0-29.9): Code(s): E66.3 - Overweight Plan: Diet and exercise (3) Hypercholesterolemia: Code(s): E78.00 - Pure hypercholesterolemia, unspecified Plan: Avoid fried foods, chicken skin, eggs, butter margarine, pastries and meat. Be it pork or beef they have a lot of cholesterol LDL goal of less than 130 and triglyceride of less than 150. Recent blood work is at goal (4) Impaired glucose tolerance: Code(s): R73.02 - Impaired glucose tolerance (oral) Plan: Decrease the amount of carbohydrate intake, pasta, bread, rice and potatoes are all sugar and that is aside from all the sweet stuff, remember that fruits are good but they are Sweet also. Hemoglobin A1c is in the normal range. (5) Generalized anxiety disorder: Comment: Declined referral for counseling October 2021, 01/2022 Code(s): F41.1 - Generalized anxiety disorder Plan: Continue with present medication. (6) Colon cancer screening: Code(s): Z12.11 - Encounter for screening for malignant neoplasm of colon Orders: Referrals Cologuard Test Z12.11 - Encounter for screening for malignant neoplasm of colon Coding Level of Care Code Est Pt Prev Care 40-64y([id number]) Diagnoses Annual physical exam Z00.00 Overweight (BMI 25.0-29.9) E66.3 Hypercholesterolemia E78.00 Impaired glucose tolerance R73.02 Generalized anxiety disorder F41.1 Colon cancer screening Z12.11
== END 2023-08-21 13:03 | disposition home or self-care (01) ==
PROVIDERS: PCP Internal Medicine; Visit Provider Internal Medicine
DX: Z00.00 Encounter for general adult medical examination without abnormal findings (principal); E66.3 Overweight; E78.00 Pure hypercholesterolemia, unspecified; R73.02 Impaired glucose tolerance (oral); F41.1 Generalized anxiety disorder; Z12.11 Encounter for screening for malignant neoplasm of colon
CPT/HCPCS: 99396

== ENCOUNTER → 2024-05-28 08:47 | Outpatient (BNVA) | payer MEDICARE, SELFPAY | PROVIDERS: PCP Internal Medicine; Visit Provider Internal Medicine | DX: R19.5 Other fecal abnormalities (principal); K62.5 Hemorrhage of anus and rectum | CPT/HCPCS: 99202 ==

== ENCOUNTER 2024-05-28 10:53 | Outpatient (AMB) | payer MEDICARE, SELFPAY ==
[2024-05-28 10:56] VITALS: BP 133/86; PULSE 77; BMI 30.3
--- NOTE | 2024-05-28 10:56 | A.OFFVIS_ITS ---
Vital Signs 05/28/24 10:56 Height 5 ft 9 in Weight 205 lb 0.478 oz BMI 30.3 BP 133/86 Blood Pressure Location Lt brachial Position Sitting Pulse 77 Intake Visit Reasons: Colonoscopy Screening Intake Note: Félix presents in the office as a new patient for a colonoscopy screening. CC: States he is not having any concerns GI hall. 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 Pt does report hx of hemorhhoids that intermittently bleed x 10 years. He did note they were bleeding even at the time of taking the cologuard test. Pt has pictures that show scant red blood on TP. Patient is at average risk of colon cancer due to no family history of colon cancer or colon polyps. Patient does not have any other gastrointestinal symptoms to include abdominal pain, nausea, vomiting, diarrhea, weight loss. Blood in stool reported as outlined above. PFSH Medical History Shoulder weakness Elevated blood sugar Surgical History No pertinent past surgical history Family History Father Diabetes Hypertension Prostate cancer Mother Diabetes Hypertension Breast cancer in situ Social History Housing: Apartment Alcohol intake: never Comment: 30 years old Patient Tobacco Use Status: Never used Tobacco e-Cigarette/Vaping Use: Never Used Second Hand Smoke Exposure: No service: No Current occupational status: employed Current occupational exposures/hazards: No Cognitive needs: No Hearing needs: No Vision needs: No Review of Systems Const All systems reviewed & are unremarkable except as noted in HPI and below Physical Exam Vital Signs: Last Vital Signs Pulse 77 05/28/24 10:56 BP 133/86 05/28/24 10:56 BMI result Body Mass Index 30.3 Gen appear: NAD, well nourished HEENT: no icterus, no cervical lymphadenopathy Chest: clear to auscultation CVS: Regular S1/S2 Abd: soft, nontender, nondistended Ext: no peripheral edema Neuro: A/Ox3, noted to move all extremities spontaneously Assessment & Plan Assessment & Plan (1) Positive colorectal cancer screening using Cologuard test: Code(s): R19.5 - Other fecal abnormalities Category: Medical (2) Bright red rectal bleeding: Code(s): K62.5 - Hemorrhage of anus and rectum Category: Medical Plan Reviewed with the patient that if he has submitted the sample while having active hemorrhoidal bleeding, that is likely the reason of the stools as being positive. However, will need a diagnostic colonoscopy for follow-up to rule out other causes such as large friable polyp, early cancer. This will also serve as evaluation for intermittent rectal bleeding which, again, appears likely to be from hemorrhoids, but can not exclude anal fissure, SURS, colitis etc. Plan: -colonoscopy to be scheduled within 6 months of stool test i.e by Aug 2024 latest -PEG prep reviewed with the patient. Handout with instructions provided -he is also aware of the need for ride back home. Follow-up after procedure as needed Medications: New peg 3350-electrolytes 236-22.74-6.74 -5.86 gram (Golytely) as per split prep instructions, until fecal effluent is clear 240 mL PO Q10M 4,000 mL 0RF colonoscopy Coding Level of Care Code New Pt Level 3 (95881) Diagnoses Positive colorectal cancer screening using Cologuard test R19.5 Bright red rectal bleeding K62.5
== END 2024-05-28 11:22 | disposition home or self-care (01) ==
LOC: HO.HGI 10:53
PROVIDERS: PCP Internal Medicine; Visit Provider Internal Medicine
DX: R19.5 Other fecal abnormalities (principal); K62.5 Hemorrhage of anus and rectum
CPT/HCPCS: 99203

== ENCOUNTER 2024-08-26 10:56 | Outpatient (AMB) | payer MEDICARE, SELFPAY ==
[2024-08-26 11:13] VITALS: BP 130/78; PULSE 76; O2SAT 98; BMI 31.0
--- NOTE | 2024-08-26 11:13 | MHC.PC.OV ---
Vital Signs 08/26/24 11:13 Height 5 ft 9 in Weight 210 lb BMI 31.0 BP 130/78 Blood Pressure Location Lt brachial Position Sitting Pulse 76 Pulse Source Pulse Oximeter Pulse Oximetry (%) 98 Oxygen Delivery Method Room Air Intake Visit Reasons: Annual Exam Allergies No Known Allergies [No Known Allergies*] Allergy (Verified 08/26/24 11:13) Medication List - Last Reconciled 08/26/24 by Carlene Soriano MD cyclobenzaprine 5 mg PO TID PRN 30 days [Functional Capacity Evaluation As directed] naproxen sodium (Aleve) 220 mg PO BID PRN peg 3350-electrolytes 236-22.74-6.74 -5.86 gram (Golytely) 240 mL PO Q10M sertraline 25 mg PO DAILY 30 days Tobacco use date assessed: 08/26/24 Dental Screening Dental Screen Date: 08/26/24 Did you have a dental visit in the last 12 months?: Yes Did you have a dental problem in the last 6 months where you did not have access to dental care?: No Was dental information given to patient?: Patient has dentist HPI Annual Exam HPI Details Carlos Alberto patient is a 43-year-old male presenting with concerns related to weight gain, gastrointestinal disturbances, and a routine physical examination. The patient reports a history of obesity with a recent weight gain of 5 pounds, expressing a pattern of weight fluctuations, gaining weight during the winter and losing it in the summer. His last recorded weight in 2020 was 163 pounds, with a recent peak of 200 pounds. He is concerned about his dietary habits and physical activity level, which has reduced during the winter months. The patient has a history of general anxiety disorder, which is currently managed with sertraline. There is also a noted history of impaired glucose tolerance and elevated liver function tests. Despite these issues, his blood pressure is currently well-controlled. Recent bloodwork from July 2023 indicates improvement in LDL cholesterol levels. Gastroenterologically, the patient reports a history of hemorrhoids with episodes of bleeding, recently noted to be more frequent. He was referred to gastroenterology and underwent consultation in May 2024, although the planned colonoscopy was postponed multiple times. The patient requests a new referral to [facility] for further investigation of his gastrointestinal symptoms, especially given the presence of blood in the stool. For the management of alopecia, the patient expresses interest in starting finasteride, in addition to using [id number] minoxidil serum, endorsing a family history of male-pattern baldness. - Advised maintaining an active lifestyle and managing diet for weight control. - Blood pressure monitoring due to history of hypercholesterolemia and impaired glucose tolerance. - Monitoring liver function due to history of elevated liver enzymes. - Advised monitoring for gastrointestinal symptoms and ensuring follow-up for colorectal cancer screening due to family history of colorectal diseases. - Discussed the use of finasteride for alopecia, to be taken as 1 mg once daily for 6 to 12 months. - Patient reports reduced physical activity during winter, affecting weight management. - Family history: Brother with throat cancer, requiring significant prognosis warnings due to smoking and alcohol use. - Patient previously engaged in alcohol and smoking, stopped upon having a child. - Nutrition: Indicates a variance in dietary habits with increased weight in winter. 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 - Gastrointestinal: Reports recent blood in stools and a history of hemorrhoids. - Neurological: Reports headaches without accompanying fever or nausea. - Respiratory: Denies shortness of breath upon exertion such as using stairs. - Labs: Last cholesterol and LDL panel in July 2023 showing improvement. - Procedures: Gastroenterology consultation noted, but no colonoscopy performed. [facility] Medical History Shoulder weakness Elevated blood sugar Surgical History No pertinent past surgical history Family History (Updated 08/26/24 @ 11:54 by Carlene Soriano MD) Father Diabetes Hypertension Prostate cancer Mother Diabetes Hypertension Breast cancer in situ Brother Throat cancer Social History Housing: Apartment Alcohol intake: never Comment: 30 years old Patient Tobacco Use Status: Never used Tobacco Tobacco use type: Cigarette e-Cigarette/Vaping Use: Never Used Second Hand Smoke Exposure: No service: No Current occupational status: employed Current occupational exposures/hazards: No Cognitive needs: No Hearing needs: No Vision needs: No Questionnaire PHQ-9 Over the last 2 weeks, how often have you been bothered by any of the following problems? 1. Little interest or pleasure in doing things: not at all 2. Feeling down, depressed, or hopeless: several days 3. Trouble falling or staying asleep, or sleeping too much: not at all 4. Feeling tired or having little energy: not at all 5. Poor appetite or overeating: not at all 6. Feeling bad about yourself - or that you are a failure or have let yourself or your family down: not at all 7. Trouble concentrating on things, such as reading the newspaper or watching television: not at all 8. Moving or speaking so slowly that other people could have noticed. Or the opposite - being so fidgety or restless that you have been moving around a lot more than usual: not at all 9. Thoughts that you would be better off or of hurting yourself in some way: not at all Total score: 1 Depression Screening Interpretation: Positive Depression Screening Follow-up: Existing condition and In treatment Depression Screening Done: Yes 85709 - PHQ-9 Billing: Yes Source: Developed by Drs. Steve Hernandez, Gabriella Drake, Skinny Hollingsworth and colleagues, with an educational jamey from [employer]. Thrive Questionnaire Date Thrive assessed: 08/26/24 I am a: Patient What is your living situation today?: I have a steady place to live Within the past 12 months, did the food you bought not last and you didn't have the money to get more?: Sometimes True Within the past 12 months, did you worry whether your food would run out before you got money to buy more?: Sometimes True Do you have trouble paying for medicines?: No Do you have trouble getting transportation to medical appointments?: No Do you have trouble paying your heating and electricity bill?: No Do you have trouble taking care of your child, family member or friend?: No Do you have trouble with day-to-day activities such as bathing, preparing meals, shopping, managing finances, etc.?: I choose not to answer this question Are you currently unemployed and looking for a job?: I choose not to answer this question Are you interested in more education?: I choose not to answer this question Please select the resources that you would like help with: None Currently or been in a relationship where the following occur: I choose not to answer THRIVE Score: 2 AUDIT C Alcohol Use Questionnaire (AUDIT-C) 1. How often do you have a drink containing alcohol?: Never Total Score: 0 VIRGINIA-7 AMB Questionnaire VIRGINIA-7 Date VIRGINIA - 7 assessed: 08/26/24 Feeling nervous, anxious, or on edge: 3 = Nearly every day Not being able to stop or control worryin = Several days Worrying too much about different things: 1 = Several days Trouble relaxin = Several days Being so restless that it is hard to sit still: 1 = Several days Becoming easily annoyed or irritable: 1 = Several days Feeling afraid as if something awful might happen: 0 = Not at all Total VIRGINIA-7 score (0-4 normal; 5-9 mild; 10-14 moderate; 15-21 severe): 8 Source: Developed by Drs. Steve Hernandez, Gabriella Drake, Skinny Hollingsworth and colleagues, with an educational jamey from [employer]. Review of Systems Const Denies poor appetite and Denies weakness Eyes Denies no additional complaints ENT Reports Normal hearing present, Denies dizziness, Denies nasal congestion, Denies tinnitus and Denies sore throat Card Denies chest pain, Denies syncope, Denies rapid heart rate and Denies dyspnea Resp Denies cough and Denies dyspnea GI Denies change in stool character, Reports constipation, Denies diarrhea, Denies nausea and Denies vomiting Denies dysuria and Denies urinary frequency Neuro Reports Normal hearing present, Denies confusion, Denies dizziness, Denies syncope and Denies weakness Psych Denies confusion Physical exam (Primary Care) Vital Signs: Last Vital Signs Pulse 76 08/26/24 11:13 BP 130/78 08/26/24 11:13 Pulse Ox 98 08/26/24 11:13 Oxygen Delivery Method Room Air 08/26/24 11:13 BMI result Body Mass Index 31.0 Tobacco/Smoking Status: Tobacco use Status Tobacco use date assessed 08/26/24 08/26/24 11:20 Patient Tobacco Use Status Never used Tobacco 08/26/24 11:20 Tobacco use type Cigarette 08/26/24 11:20 e-Cigarette/Vaping Use Never Used 08/26/24 11:20 PHQ-9: PHQ-9 Score PHQ-9: Total score 1 08/26/24 11:44 Depression Screening Interpretation: Positive Depression Screening Follow-up: Existing condition and In treatment Thrive Assessment: Date of Thrive Assessment Date Thrive assessed 08/26/24 08/26/24 11:20 Currently or been in a relationship where the following occur: I choose not to answer Const General: No confusion Orientation/consciousness: No confusion HENMT Head: Yes normocephalic Ears: external ears normal and TM's normal bilaterally Face and sinus: Yes normal facial exam Mouth: moist mucous membranes Throat: Yes tonsils normal Eyes Conjunctivae: conjunctivae normal Pupils: Equal, round and reactive pupils present and Pupil accommodation reflex normal Direct Ophthalmoscopy: normal light reflex Neck Neck: No lymphadenopathy Thyroid: Thyroid normal Chest Chest palpation & inspection: normal inspection of the chest Resp Effort & Inspection: normal respiratory effort and no audible wheezes Auscultation: clear to auscultation bilaterally, no crackles, no wheezes and lung sounds not diminished Cardio Rate: regular rate Rhythm: regular rhythm Peripheral pulses: radial pulses present and dorsalis pedis present GI Palpation (GI): no masses Auscultation: normal bowel sounds and normoactive bowel sounds Rectal Exam - Male: Yes deferred Skin General skin exam: no rashes or lesions noted Rashes: no rashes Neuro General: No confusion Cranial nerves: Yes Equal, round and reactive pupils present and Yes Normal hearing present Cognition (Neuro): normal cognition Gait exam (Neuro): Normal gait present Motor exam (neuro): 5/5 motor strength present throughout Deep tendon reflexes (DTR's): Right brachioradialis reflex intensity grade: 2+, Left brachioradialis reflex intensity grade: 2+, Right patellar reflex intensity grade: 2+ and Left patellar reflex intensity grade: 2+ Extrem General: No edema Coding Level of Care Code Est Pt Prev Care 40-64y(91102) Diagnoses Annual physical exam Z00.00 Impaired glucose tolerance R73.02 Hypercholesterolemia E78.00 Generalized anxiety disorder F41.1 Colon cancer screening Z12.11 Obesity (BMI 30.0-34.9) E66.811 Positive colorectal cancer screening using Cologuard test R19.5 Hair loss L65.9 Additional Codes PHQ-9 - 24927 - PHQ-9 Billing: Yes ([id number]) Assessment & Plan Assessment & Plan (1) Annual physical exam: Code(s): Z00.00 - Encounter for general adult medical examination without abnormal findings Category: Medical (2) Impaired glucose tolerance: Code(s): R73.02 - Impaired glucose tolerance (oral) Category: Medical (3) Hypercholesterolemia: Code(s): E78.00 - Pure hypercholesterolemia, unspecified Category: Medical (4) Generalized anxiety disorder: Comment: Declined referral for counseling October 2021, 01/2022 Code(s): F41.1 - Generalized anxiety disorder Category: Medical (5) Colon cancer screening: Code(s): Z12.11 - Encounter for screening for malignant neoplasm of colon Category: Medical (6) Obesity (BMI 30.0-34.9): Code(s): E66.811 - Obesity, class 1 Category: Medical (7) Positive colorectal cancer screening using Cologuard test: Code(s): R19.5 - Other fecal abnormalities Category: Medical (8) Hair loss: Code(s): L65.9 - Nonscarring hair loss, unspecified Category: Medical Plan - Referral for gastrointestinal consultation at [facility] for persistent hemorrhoids and further evaluation due to blood in stools. - Blood work to monitor liver function and fasting blood sugar levels, given impaired glucose tolerance and elevated LFT history. - Fine-tuning existing management of anxiety disorder with current dosage of sertraline. - Initiate 1 mg finasteride daily for management of alopecia. Monitor for potential side effects related to medication. - Encourage lifestyle changes, including increased physical activity and dietary management to address obesity and weight fluctuations. During this visit, I discussed the necessity for the patient to maintain a consistent routine of physical activity and balanced diet to manage weight losses and gains throughout the year. The patient acknowledged a tendency for weight gain during the winter and has fluctuated between 163 and 200 pounds since 2020. I reiterated the importance of monitoring his health parameters, specifically given the history of hypercholesterolemia and impaired glucose tolerance. I addressed the patient's concerns about his gastrointestinal symptoms and arranged for a referral to [facility] for a new consultation to explore the ongoing issue of blood in stools, suspecting hemorrhoids but intending to rule out other conditions such as colorectal pathologies. Regarding alopecia, a plan to commence finasteride was established following the patient?s interest in complementing his use of purchased minoxidil. I cautioned against combining multiple hair loss treatments without medical supervision to avoid potential side effects. - Follow up with scheduled blood work for monitoring liver function and glucose levels. - Maintain regular physical activity and a balanced diet to help control weight. - Await referral to [facility] for further gastroenterological evaluation. - Begin daily intake of finasteride as discussed, monitor for possible side effects. - Keep track of gastrointestinal symptoms, and report any worsening conditions immediately. Orders: Orders Hemoglobin A1c Today R73.02 - Impaired glucose tolerance (oral) Thyroid Stimulating Hormone Today R73.02 - Impaired glucose tolerance (oral) Vitamin B12 and Folate Today R73.02 - Impaired glucose tolerance (oral) Complete Blood Count Auto Diff Today R73.02 - Impaired glucose tolerance (oral) Comprehensive Met. Panel Today R73.02 - Impaired glucose tolerance (oral) Free T4 (Free Thyroxine) Today R73.02 - Impaired glucose tolerance (oral) Lipid Panel Today E78.00 - Pure hypercholesterolemia, unspecified, R73.02 - Impaired glucose tolerance (oral) Referrals Gastroenterology Referral R19.5 - Other fecal abnormalities, Z12.11 - Encounter for screening for malignant neoplasm of colon Medications: New finasteride 1 mg PO DAILY 30 tabs 2RF L65.9 - Nonscarring hair loss, unspecified Refilled naproxen sodium (Aleve) alternating day with tylenol 220 mg PO BID PRN 90 caps 0RF pain M25.511 - Pain in right shoulder, M25.512 - Pain in left shoulder
== END 2024-08-26 12:05 | disposition home or self-care (01) ==
PROVIDERS: PCP Internal Medicine; Visit Provider Internal Medicine
DX: Z00.00 Encounter for general adult medical examination without abnormal findings (principal); R73.02 Impaired glucose tolerance (oral); E66.811 Obesity, class 1; Z68.31 Body mass index [BMI] 31.0-31.9, adult; E78.00 Pure hypercholesterolemia, unspecified; F41.1 Generalized anxiety disorder; Z12.11 Encounter for screening for malignant neoplasm of colon; R19.5 Other fecal abnormalities; L65.9 Nonscarring hair loss, unspecified

== ENCOUNTER → 2024-08-26 10:56 | Outpatient (BNVA) | payer MEDICARE, SELFPAY | PROVIDERS: PCP Internal Medicine; Visit Provider Internal Medicine | DX: Z00.00 Encounter for general adult medical examination without abnormal findings (principal); E78.00 Pure hypercholesterolemia, unspecified; R73.02 Impaired glucose tolerance (oral); F41.1 Generalized anxiety disorder; E66.811 Obesity, class 1; Z68.31 Body mass index [BMI] 31.0-31.9, adult; R19.5 Other fecal abnormalities; L65.9 Nonscarring hair loss, unspecified; Z71.3 Dietary counseling and surveillance | CPT/HCPCS: 96127; 99396 ==

== ENCOUNTER 2024-12-01 10:28 | Outpatient (REF) | payer MEDICARE, SELFPAY ==
[2024-12-01 10:43] LABS: MANUAL DIFF FLAG NO
[2024-12-01 11:24] LABS: Basophils Percent Auto 0.6 % (0-2); Eosinophils Absolute Auto 0.1 X10*3/uL (0.0-0.4); Eosinophils Percent Auto 2.1 % (0-4); Hematocrit 45.5 % (42.0-52.0); Hemoglobin 15.4 g/dl (14.0-18.0); Imm Gran Abs Auto 0.03 X10*3/uL (0.00-0.03); Imm Gran Pct Auto 0.4 % (0.0-0.4); Lymphocytes Absolute Auto 2.1 X10*3/uL (1.2-4.9); Lymphocytes Percent Auto 31.9 % (20-40); Mean Corpuscular HGB Conc 33.8 g/dl (31.0-36.0); Mean Corpuscular Hemoglobin 29.3 pg (27.0-33.0); Mean Corpuscular Volume 86.7 fL (80.0-98.0); Mean Platelet Volume 9.2 fL (9.4-12.4); Monocytes Absolute Auto 0.4 X10*3/uL (0.1-1.2); Neutrophils Absolute Auto 3.9 x10*3/uL (2.0-8.3); Platelet Count 301 X10*3/uL (160-400); Red Blood Count 5.25 X10*6/uL (4.60-5.80); Red Cell Distribution Width 12.4 % (11.0-16.0); White Blood Count 6.7 X10*3/uL (4.8-10.8)
[2024-12-01 11:47] LABS: Estimated Average Glucose 108 mg/dL; Hemoglobin A1C 142.0756 umol/L; Hemoglobin A1c % 5.4 % (<6.0); Total Hemoglobin (HGBA1C) 4060.3515 umol/L
[2024-12-01 11:55] LABS: Alanine Aminotransferase 30 U/L (0-40); Albumin Level 4.4 g/dL (3.5-5.0); Anion Gap 10 (12-20); Aspartate Amino Transferase 25 U/L (5-37); Bilirubin Total 0.7 mg/dL (0.0-1.0); Blood Urea Nitrogen 17 mg/dL (9-16); Calcium 9.4 mg/dL (8.4-10.2); Carbon Dioxide 25 mmol/L (22-29); Chloride 108 mmol/L (96-108); Cholesterol 178 mg/dL (<200); Estimated Glomerular Filt Rate > 60; Glucose Random 92 mg/dL (60-115); HDL Cholesterol 38 mg/dL (>40); LDL Cholesterol Calculated 119 mg/dL (<100); Potassium 4.2 mmol/L (3.3-5.1); Sodium 139 mmol/L (135-145); Total Protein 7.3 g/dL (6.5-8.0); Triglycerides 109 mg/dL (<150)
[2024-12-01 12:12] LABS: Folate 9.6 ng/mL (> or = 4.0); Vitamin B12 455 pg/mL (200-900)
[2024-12-01 12:14] LABS: Free T4 (Free Thyroxine) 0.95 ng/dL (0.71-1.85)
[2024-12-01 12:22] LABS: Alkaline Phosphatase 58 U/L (39-117)
== END 2024-12-01 10:29 | disposition home or self-care (01) ==
LOC: HO.LAB 10:28
PROVIDERS: PCP Internal Medicine; Visit Provider Internal Medicine
DX: L65.9 Nonscarring hair loss, unspecified (principal); R19.5 Other fecal abnormalities; E66.3 Overweight; E78.00 Pure hypercholesterolemia, unspecified; R73.02 Impaired glucose tolerance (oral); F41.1 Generalized anxiety disorder; L91.8 Other hypertrophic disorders of the skin; T88.1XXA Other complications following immunization, not elsewhere classified, initial encounter; R51.9 Headache, unspecified; M54.50 Low back pain, unspecified
CPT/HCPCS: 36415; 80053; 80061; 82607; 82746; 83036; 84439; 84443; 85025; 96127; 99212

== ENCOUNTER 2024-12-01 11:09 | Outpatient (AMB) | payer MEDICARE, SELFPAY ==
--- NOTE | 2024-12-01 11:31 | MHC.PC.OV ---
Vital Signs 12/01/24 11:38 Height 5 ft 9 in Weight 198 lb 6 oz BMI 29.3 BP 116/72 Blood Pressure Location Lt brachial Position Sitting Pulse 70 Pulse Source Pulse Oximeter Temp 97.1 F Temp Source Temporal Artery Scan Pulse Oximetry (%) 97 Oxygen Delivery Method Room Air Intake Visit Reasons: aloepcia Algologist Required: No Accompanied by: Self / Same As Patient Allergies No Known Allergies [No Known Allergies*] Allergy (Verified 12/01/24 11:32) Tobacco use date assessed: 08/26/24 Dental Screening Dental Screen Date: 08/26/24 HPI aloepcia HPI Details PAtient states has been approved for disability. also has eye skin tags [facility] Medical History (Updated 12/01/24 @ 12:19 by Carlene oSriano MD) Obesity (BMI 30.0-34.9) Shoulder weakness Elevated blood sugar Surgical History No pertinent past surgical history Family History Father Diabetes Hypertension Prostate cancer Mother Diabetes Hypertension Breast cancer in situ Brother Throat cancer Social History Housing: Apartment Alcohol intake: never Comment: 30 years old Patient Tobacco Use Status: Never used Tobacco Tobacco use type: Cigarette e-Cigarette/Vaping Use: Never Used Second Hand Smoke Exposure: No service: No Current occupational status: employed Current occupational exposures/hazards: No Cognitive needs: No Hearing needs: No Vision needs: No Questionnaire PHQ-9 Over the last 2 weeks, how often have you been bothered by any of the following problems? 1. Little interest or pleasure in doing things: not at all 2. Feeling down, depressed, or hopeless: several days 3. Trouble falling or staying asleep, or sleeping too much: several days 4. Feeling tired or having little energy: nearly every day 5. Poor appetite or overeating: more than half the days 6. Feeling bad about yourself - or that you are a failure or have let yourself or your family down: several days 7. Trouble concentrating on things, such as reading the newspaper or watching television: several days 8. Moving or speaking so slowly that other people could have noticed. Or the opposite - being so fidgety or restless that you have been moving around a lot more than usual: more than half the days 9. Thoughts that you would be better off or of hurting yourself in some way: not at all Total score: 11 [id number] - PHQ-9 Billing: Yes Source: Developed by Drs. Steve Hernandez, Gabriella Drake, Skinny Hollingsworth and colleagues, with an educational jamey from [employer]. Thrive Questionnaire Date Thrive assessed: 12/01/24 I am a: Patient What is your living situation today?: I have a steady place to live Within the past 12 months, did the food you bought not last and you didn't have the money to get more?: Sometimes True Within the past 12 months, did you worry whether your food would run out before you got money to buy more?: Sometimes True Do you have trouble paying for medicines?: No Do you have trouble getting transportation to medical appointments?: No Do you have trouble paying your heating and electricity bill?: No Do you have trouble taking care of your child, family member or friend?: No Do you have trouble with day-to-day activities such as bathing, preparing meals, shopping, managing finances, etc.?: I choose not to answer this question Are you currently unemployed and looking for a job?: I choose not to answer this question Are you interested in more education?: I choose not to answer this question Please select the resources that you would like help with: None Currently or been in a relationship where the following occur: I choose not to answer THRIVE Score: 2 [place]-7 AMB Questionnaire [place]GIN[place]-7 Date [place] - 7 assessed: 08/26/24 Source: Developed by Drs. Steve Hernandez, Gabriella Drake, Skinny Hollingsworth and colleagues, with an educational jamey from [employer]. Physical exam (Primary Care) Vital Signs: Last Vital Signs Temp 97.1 F 12/01/24 11:38 Pulse 70 12/01/24 11:38 BP 116/72 12/01/24 11:38 Pulse Ox 97 12/01/24 11:38 Oxygen Delivery Method Room Air 12/01/24 11:38 BMI result Body Mass Index 29.3 Tobacco/Smoking Status: Tobacco use Status Tobacco use date assessed 08/26/24 12/01/24 11:32 Patient Tobacco Use Status Never used Tobacco 12/01/24 11:32 Tobacco use type Cigarette 12/01/24 11:32 e-Cigarette/Vaping Use Never Used 12/01/24 11:32 PHQ-9: PHQ-9 Score PHQ-9: Total score 11 12/01/24 12:07 Thrive Assessment: Date of Thrive Assessment Date Thrive assessed 12/01/24 12/01/24 11:32 Currently or been in a relationship where the following occur: I choose not to answer Const General: alert; No acute distress Eyes Conjunctivae: conjunctivae normal Resp Auscultation: clear to auscultation bilaterally Cardio Rate: regular rate Rhythm: regular rhythm GI Inspection: Yes normal to inspection Extrem General: Yes normal to inspection and No edema Coding Level of Care Code Est Pt Level 4 (58529) Complex EM visit Add On G2211 Diagnoses Hair loss L65.9 Positive colorectal cancer screening using Cologuard test R19.5 Overweight (BMI 25.0-29.9) E66.3 Hypercholesterolemia E78.00 Impaired glucose tolerance R73.02 Generalized anxiety disorder F41.1 Skin tag L91.8 Post-vaccination reaction T88.1XXA Left-sided headache R51.9 Low back pain M54.50 Additional Codes PHQ-9 - 99977 - PHQ-9 Billing: Yes ([id number]) Assessment & Plan Assessment & Plan (1) Hair loss: Code(s): L65.9 - Nonscarring hair loss, unspecified Category: Medical Plan: Patient was prescribed finasteride. Workup pending (2) Positive colorectal cancer screening using Cologuard test: Code(s): R19.5 - Other fecal abnormalities Category: Medical Plan: Patient has been recommended to see gastroenterology for colonoscopy. I do not see any note (3) Overweight (BMI 25.0-29.9): Code(s): E66.3 - Overweight Category: Medical Plan: Continue with diet and exercise (4) Hypercholesterolemia: Code(s): E78.00 - Pure hypercholesterolemia, unspecified Category: Medical Plan: Avoid fried foods, chicken skin, eggs, butter margarine, pastries and meat. Be it pork or beef they have a lot of cholesterol LDL goal of less than 130 and triglyceride of less than 150 (5) Impaired glucose tolerance: Code(s): R73.02 - Impaired glucose tolerance (oral) Category: Medical Plan: Decrease the amount of carbohydrate intake, pasta, bread, rice and potatoes are all sugar and that is aside from all the sweet stuff, remember that fruits are good but they are Sweet also. (6) Generalized anxiety disorder: Comment: Declined referral for counseling October 2021, 01/2022 Code(s): F41.1 - Generalized anxiety disorder Category: Medical Plan: Continue with present medication (7) Skin tag: Comment: eye lids Code(s): L91.8 - Other hypertrophic disorders of the skin Category: Medical (8) Post-vaccination reaction: Comment: August 2020 Code(s): T88.1XXA - Other complications following immunization, not elsewhere classified, initial encounter Category: Medical (9) Left-sided headache: Code(s): R51.9 - Headache, unspecified Category: Medical (10) Low back pain: Comment: june 2016 L1 retrolisthesis Code(s): M54.50 - Low back pain, unspecified Category: Medical Plan History of Present Illness The patient is a 44-year-old male presenting with concerns about a positive Cologuard test and management of several chronic conditions. His medical history includes generalized anxiety disorder, impaired glucose tolerance, and hypercholesterolemia. He has experienced a 12-pound weight loss since August, attributed to changes in his diet. Previously noted episodes of hematochezia have increased his anxiety concerning the positive Cologuard test performed in February 2024. Follow-up with gastroenterology was conducted in May. Ongoing treatment includes finasteride and minoxidil for hair loss noted in early 2024. He experiences difficulty with headaches when sleeping on the left side, without associated neurological deficits or visual changes, though the left-side headache persists throughout the day. Current medical management of his conditions includes diet and exercise. Regular monitoring of glucose tolerance and cholesterol levels is advised, with a goal of reducing LDL to below 130 mg/dL and triglycerides to less than 150 mg/dL. Health Maintenance - Continuation of diet and exercise for weight management and lowering cholesterol levels. - Monitoring hemoglobin A1c to manage impaired glucose tolerance. - Maintenance of LDL goal of less than 130 mg/dL and triglyceride levels of less than 150 mg/dL. - Follow-up on pending thyroid function tests. Social History - The patient follows a smoothie-based diet including oats, natural peanut butter, fruits, protein powder, and natural applesauce. - Consumes tuna or nuts as snacks between meals. - Has reduced body mass index from 31 to 29 through these dietary changes. Review of Systems - Gastrointestinal: Reports positive Cologuard test; history of hematochezia. - Neurological: Reports headache when sleeping on the left side; Denies visual disturbances or weakness. - Endocrine: Reports history of impaired glucose tolerance. - Dermatological: Reports hair loss and skin tags. Physical Exam - Neurological- No abnormalities detected in side-specific neurological physical examination maneuvers. - Dermatological- Presence of skin tags discussed. Results - Labs: Normal complete blood count, normal electrolytes, and normal renal function. Hemoglobin A1c of 5.4. LDL of 119 mg/dL. Thyroid function tests are pending. Plan 1. 4. Finasteride and minoxidil are utilized for hair loss; symptoms are under review. Any worsening of headaches may need neurological consultation.: Patient was informed and verbally consented to the use of an ambient scribe for clinic note documentation during this visit. Discussion Notes I reviewed the patient's potential pathologies associated with the positive Cologuard test and reinforced the importance of a colonoscopy, highlighting the preventive aspect. We discussed the current management and goals for dyslipidemia, emphasizing the importance of lifestyle modifications. On hair loss, the efficacy of finasteride and minoxidil was reviewed, and dermatological options for skin tags considered. I acknowledged the patient's concerns about left-sided headaches and ensured that we could explore further neurological evaluation if needed. I reassured the patient of normal current neurological examination findings, pending thyroid function tests, which we will discuss upon receipt. Follow-up with gastroenterology is pending, and contact details were provided to expedite scheduling. The patient's commitment to a healthier lifestyle was commended. Patient Instructions - Follow up with gastroenterology for the colonoscopy. - Continue current diet and exercise regimen to manage cholesterol levels. - Monitor glucose levels regularly, follow dietary guidelines, and maintain lifestyle modifications. - Use prescribed hair loss treatments consistently. - Monitor headaches; seek further evaluation if symptoms worsen or change. - Await further instruction following thyroid function test results. - Stay hydrated and maintain regular activity. - Contact the clinic with any concerns or questions between visits. Orders: Referrals Dermatology Referral L91.8 - Other hypertrophic disorders of the skin
[2024-12-01 11:38] VITALS: BP 116/72; PULSE 70; TEMP 36.2; O2SAT 97; BMI 29.3
== END 2024-12-01 12:22 | disposition home or self-care (01) ==
LOC: HO.HMCH 11:09
PROVIDERS: PCP Internal Medicine; Visit Provider Internal Medicine
DX: L65.9 Nonscarring hair loss, unspecified (principal); R19.5 Other fecal abnormalities; E66.3 Overweight; E78.00 Pure hypercholesterolemia, unspecified; R73.02 Impaired glucose tolerance (oral); F41.1 Generalized anxiety disorder; L91.8 Other hypertrophic disorders of the skin; T88.1XXA Other complications following immunization, not elsewhere classified, initial encounter; R51.9 Headache, unspecified; M54.50 Low back pain, unspecified